=== PATIENT | male | born 1960 | race Caucasian/White ===

== ENCOUNTER 2021-07-28 17:21 | Outpatient (CLI) | payer OTHER | END 2021-07-28 17:22 | disposition EMS.NT | LOC: EMS 17:21 | DX: Z04.3 Encounter for examination and observation following other accident (principal) ==

== ENCOUNTER 2021-07-28 18:37 | Emergency (ER) | payer OTHER ==
[2021-07-28] MEDS ORDERED: oxyCODONE 5 MG TABLET PO STA (18:57)
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
--- NOTE | 2021-07-28 19:28 | XRAY Report ---
PROCEDURE: Ribs w/PA Chest LT INDICATIONS: rib injury TECHNIQUE: 4 views of the left ribs were acquired, along with a single view chest. COMPARISON: None FINDINGS: Surgical changes and devices: None. Bones and chest wall: Question subtle fracture of the lateral left sixth rib seen on single view. No suspicious bony lesions. Overlying soft tissues appear unremarkable. Lungs and pleura: No pleural effusions or pneumothorax. Lungs appear clear. Mediastinum: Mediastinal contours appear normal. Heart size is normal. IMPRESSION: Question left lateral sixth rib fracture. No evidence acute pulmonary process. Reviewed by: Michael Bravo MD on 07/28/2021 7:27 PM PDT Approved by: Michael Bravo MD on 07/28/2021 7:27 PM PDT Station ID: [id number]
--- NOTE | 2021-07-28 19:29 | XRAY Report ---
PROCEDURE: Shoulder 3 View LT INDICATIONS: shoulder inj TECHNIQUE: 3 views of the shoulder were acquired. COMPARISON: None. FINDINGS: Bones: No fractures or dislocations. No suspicious bony lesions. Visualized ribs appear intact. Soft tissues: No suspicious soft tissue calcifications. IMPRESSION: No evidence acute bony abnormality of the right shoulder. If clinical suspicion and/or symptoms persist, further assessment with repeat plain films or advanced imaging (e.g., CT, MRI, or bone scan) may be helpful for further assessment. Reviewed by: Michael Bravo MD on 07/28/2021 7:28 PM PDT Approved by: Michael Bravo MD on 07/28/2021 7:28 PM PDT Station ID: [id number]
[2021-07-28] MEDS ORDERED: oxyCODONE/ACET 5/325 Prepack 4 PO STA (19:35)
[2021-07-28] MEDS ORDERED: IBUPROFEN 600 MG TABLET PO STA (19:35)
[2021-07-28 20:18] VITALS: BP 136/87
== END 2021-07-28 20:28 | disposition home or self-care (01) ==
LOC: ED 18:37
DX: S80.211A Abrasion, right knee, initial encounter (principal); S46.912A Strain of unspecified muscle, fascia and tendon at shoulder and upper arm level, left arm, initial encounter; S22.32XA Fracture of one rib, left side, initial encounter for closed fracture; V94.0XXA Hitting object or bottom of body of water due to fall from watercraft, initial encounter; Y93.89 Activity, other specified; Y92.89 Other specified places as the place of occurrence of the external cause
CPT/HCPCS: 71101; 73030; 99284; A9270

== ENCOUNTER 2023-09-16 10:12 | Outpatient (CLI) | payer MEDICARE ==
--- NOTE | 2023-09-16 12:50 | Ultrasound Report ---
PROCEDURE: Aorta Screening INDICATIONS: EX SMOKER TECHNIQUE: Real time scanning was performed of the aorta and iliac arteries, with image documentatio n. COMPARISON: None. FINDINGS: Aorta: Proximal aortic diameter measures between 2.7 and 2.9 cm in diameter, but is largely obscured by bowel gas. Mid-aorta measures 2.3 x 2.5 cm. Distal aortic diameter is 1.8 x 2.1 cm. Iliac arteries: Right common iliac artery measures 1.4 x 1.0 cm. Left common iliac artery measures 1.2 x 1.0 cm. IMPRESSION: Ectatic abdominal aorta. 5 year follow-up imaging surveillance is recommended. Recommended intervals for follow-up imaging of ectatic aortas and abdominal aortic aneurysms, per ACR consensus guidelines: 2.5-2.9 cm: 5 years 3.0-3.4 cm: 3 years 3.5-3.9 cm: 2 years 4.0-4.4 cm: 1 year 4.5-4.9 cm: 6 months + endovascular referral 5.0-5.5 cm: 3-6 months + endovascular referral Reviewed by: Stacey Jaimes MD on 09/16/2023 12:48 PM PST Approved by: Stacey Jaimes MD on 09/16/2023 12:48 PM PST Station ID: [id number]
== END 2023-09-16 10:13 | disposition home or self-care (01) ==
LOC: DI 10:12
PROVIDERS: ATTEND Physician Assistant
DX: Z13.6 Encounter for screening for cardiovascular disorders (principal); Z87.891 Personal history of nicotine dependence; I77.811 Abdominal aortic ectasia

== ENCOUNTER 2024-07-19 07:48 | Outpatient (CLI) | payer MEDICARE ==
--- NOTE | 2024-07-20 13:47 | Ultrasound Report ---
PROCEDURE: Abdomen Limited INDICATIONS: RUQ ABD PAIN TECHNIQUE: Ultrasound of the abdominal right upper quadrant was obtained with image documentation. COMPARISONS: None. FINDINGS: Liver: Liver shows diffusely increased echogenicity without focal mass lesion. No intrahepatic duct al dilation.. The left hepatic lobe medially, there is a focal nodular density measuring 9 mm probabl y reflect small hemangioma. Gallbladder: Sonolucent without cholelithiasis. No gallbladder wall thickening. No pericholecystic fluid or Jacques's sign. Common Bile Duct: 3 mm. Pancreas: Unremarkable as visualized. Right Kidney: Appropriate in size and echotexture. No evidence of hydronephrosis. No shadowing calc jessi. No solid or cystic mass lesion. IMPRESSION: Small focal nodule in the right hepatic lobe probably reflects small hemangioma, 9 mm Hepatic fatty infiltration Reviewed by: Trung Calvert MD on 07/20/2024 12:46 PM AKDT Approved by: Trung Calvert MD on 07/20/2024 12:46 PM AKDT Station ID: [id number]
== END 2024-07-19 07:49 | disposition home or self-care (01) ==
LOC: DI 07:48
PROVIDERS: ATTEND Student in an Organized Health Care Education/Training Program
DX: K76.9 Liver disease, unspecified (principal); K76.0 Fatty (change of) liver, not elsewhere classified